=== PATIENT | female | born 2000 | race African-American/Black ===

== ENCOUNTER 2022-08-18 23:39 | Emergency (ER) | payer MEDICAID ==
[~2022-08-18] VITALS: Ht 175.3 cm; Wt 70.8 kg
[2022-08-18 23:57] VITALS: BP 111/52
[2022-08-19 00:51] LABS: BASOPHILS % 0.4 % (0.0-2.0); EOSINOPHILS % 1.9 % (0.0-5.0); HEMATOCRIT. 38.6 % (36.0-48.0); HEMOGLOBIN. 12.9 g/dL (12.0-16.0); LYMPHOCYTES % 34.4 % (20.0-50.0); MEAN CORPUSCULAR HEMOGLOBIN 30.8 pg (28.0-32.0); MEAN CORPUSCULAR VOLUME 92.3 fL (81.0-99.0); MEAN PLATELET VOLUME 8.4 fl (7.4-10.4); MONOCYTES % 7.5 % (2.0-8.0); NEUTROPHILS % 55.8 % (40.0-76.0); PLATELET 195 x1000/uL (130-400); RED BLOOD CELL COUNT 4.18 mill/uL (4.2-5.4); RED CELL DISTRIBUTION WIDTH 13.4 % (11.6-14.6)
[2022-08-19 00:58] LABS: CHLORIDE 104 mEq/L (98-107)
[2022-08-19 03:26] LABS: CLARITY URINE CLOUDY (CLEAR); COLOR URINE YELLOW (YELLOW); KETONES URINE NEGATIVE (NEGATIVE); LEUKOCYTE ESTERASE URINE 2+ (NEGATIVE); NITRITE URINE NEGATIVE (NEGATIVE); OCCULT BLOOD URINE NEGATIVE (NEGATIVE); PH URINE 5.5 (4.5-8.0); PROTEIN URINE TRACE (NEGATIVE); SPECIFIC GRAVITY URINE 1.031 (1.005-1.030)
[2022-08-19] MEDS ORDERED: DIF15 MT (04:31)
[2022-08-19] MEDS ORDERED: IBUP-2028 MT (04:31)
== END 2022-08-19 05:03 | disposition home or self-care (01) ==
LOC: ER 23:39
DX: N76.0 Acute vaginitis (principal); R07.9 Chest pain, unspecified
CPT/HCPCS: 36415; 71045; 80053; 81003; 81025; 85025; 93005; 99285

== ENCOUNTER 2024-12-10 15:19 | Emergency (ER) | payer MEDICAID ==
[~2024-12-10] VITALS: Ht 175.3 cm; Wt 68.0 kg
[~2024-12-10 15:19] MED LIST: DIF15 MT; IBUP-2028 MT
[2024-12-10 15:41] VITALS: O2SAT 99
[2024-12-10 16:01] VITALS: BP 152/71; PULSE 75; RESP 18; TEMP 36.9; O2SAT 100
[2024-12-10 16:16] LABS: BASOPHILS % 0.5 % (0.0-2.0); EOSINOPHILS % 4.4 % (0.0-5.0); HEMATOCRIT. 38.6 % (36.0-48.0); HEMOGLOBIN. 12.6 g/dL (12.0-16.0); LYMPHOCYTES % 40.3 % (20.0-50.0); MEAN PLATELET VOLUME 8.3 fl (7.4-10.4); MONOCYTES % 8.1 % (2.0-8.0); NEUTROPHILS % 46.7 % (40.0-76.0); PLATELET 205 x1000/uL (130-400); RED BLOOD CELL COUNT 4.16 mill/uL (4.2-5.4); RED CELL DISTRIBUTION WIDTH 13.6 % (11.6-14.6)
[2024-12-10 16:27] LABS: INR 1.1
[2024-12-10 16:36] LABS: CREATININE 0.9 mg/dL (0.6-1.0)
[2024-12-10 16:37] LABS: UREA NITROGEN BLOOD 9 mg/dL (9-23)
[2024-12-10 16:38] LABS: ASPARTATE AMINOTRANSFERASE 16 IU/L (<34)
[2024-12-10 16:39] LABS: BILIRUBIN DIRECT < 0.1 mg/dL (<=3.0); BILIRUBIN TOTAL 0.5 mg/dL (0.1-1.0); PROTEIN TOTAL 7.0 g/dL (6.0-8.3)
[2024-12-10 16:40] LABS: B-HCG QUANTITATIVE < 1 mIU/mL (<6)
[2024-12-10 19:17] LABS: CLARITY URINE CLEAR (CLEAR); COLOR URINE YELLOW (YELLOW); GLUCOSE URINE NEGATIVE (NEGATIVE); KETONES URINE NEGATIVE (NEGATIVE); LEUKOCYTE ESTERASE URINE TRACE (NEGATIVE); NITRITE URINE NEGATIVE (NEGATIVE); OCCULT BLOOD URINE 1+ (NEGATIVE); PH URINE 8.0 (4.5-8.0); PROTEIN URINE NEGATIVE (NEGATIVE); SPECIFIC GRAVITY URINE 1.007 (1.005-1.030); UROBILINOGEN URINE 0.2 E.U./dL (0.2-1.0)
[2024-12-10 19:35] LABS: BACTERIA URINE NONE SEEN; RBC URINE NONE SEEN /hpf (0-2); SQUAMOUS EPITHELIAL CELL URINE 1+ /lpf (RARE/1+); WBC URINE 0-2 /hpf (0-2)
== END 2024-12-10 19:59 | disposition home or self-care (01) ==
LOC: ER 15:19
DX: N93.9 Abnormal uterine and vaginal bleeding, unspecified (principal); R10.2 Pelvic and perineal pain
CPT/HCPCS: 36415; 76830; 76856; 80048; 80076; 81003; 84702; 85025; 99284